=== PATIENT | female | born 1995 | race Caucasian/White ===

== ENCOUNTER 2018-04-01 05:45 | Emergency (ER) | payer BC ==
[2018-04-01] MEDS ORDERED: Lidocaine 2% Viscous Solution 15 ML Cup PO ONE (05:59)
[2018-04-01] MEDS ORDERED: Benzocaine 20% Topical Spray UD MUCMEM ONE (05:59)
--- NOTE | 2018-04-01 06:06 | EDM.PDOC ---
ED HPI GENERAL MEDICAL PROBLEM - General Chief Complaint: General Stated Complaint: TOOTH PAIN Time Seen by Provider: 04/01/18 05:57 - History of Present Illness INITIAL COMMENTS - FREE TEXT/NARRATIVE: HISTORY AND PHYSICAL: History of present illness: The patient is a 22-year-old female who is here with complaints of dental pain and gum pain to her left upper premolar area where she has had some dental work in the past. She says she's been using [id number] Advil and it has not been working and she is concerned about getting an infection. She has no point with the dentist on Sunday of this week and she knows that they will not do any work or evaluation if there is any signs of infection so she is here for antibiotics and further pain management. She's been eating and drinking normally and says the pain is involving her entire left face but she is not having any fevers chills or other systemic complaints. Patient denies Review of systems: As per history of present illness and below otherwise all systems reviewed and negative. Past medical history: As per history of present illness and as reviewed below otherwise noncontributory. Surgical history: As per history of present illness and as reviewed below otherwise noncontributory. Social history: No reported history of drug or alcohol abuse. Family history: As per history of present illness and as reviewed below otherwise noncontributory. Physical exam: HEENT: Atraumatic, normocephalic, pupils reactive, negative for conjunctival pallor or scleral icterus, mucous membranes moist, throat clear, neck supple, nontender, trachea midline. There is no visible evidence of any facial swelling. There is no cervical adenopathy or nuchal rigidity. At the left upper premolar area there is a tooth with tenderness but no obvious fracture or cavity and there is only minimal gum swelling in this region without fluctuance. Lungs: Clear to auscultation, breath sounds equal bilaterally, chest nontender. Heart: S1S2, regular rate and rhythm no overt murmurs Abdomen: Soft, nondistended, nontender. NABS Pelvis: Deferred Genitourinary: Deferred. Rectal: Deferred. Extremities: Atraumatic, full range of motion without defects or deficits. Neurovascular unremarkable. Neuro: Awake, alert, oriented. Cranial nerves II through XII unremarkable. Cerebellum unremarkable. Motor and sensory unremarkable throughout. Exam nonfocal. Diagnostics: [] Therapeutics: Dental balls The patient has specifically asked for ibuprofen 800 mg as she says that works the best for her and I will also give her amoxicillin from [facility] Impression: Dental pain Definitive disposition and diagnosis as appropriate pending reevaluation and review of above. tooth Pain Score (Numeric/FACES): 9 - Related Data Allergies Allergy/AdvReac Type Severity Reaction Status Date / Time No Known Allergies Allergy Verified 04/01/18 05:59 Home Meds: Home Meds . [No Known Home Meds] 04/01/18 [History] ED ROS GENERAL - Review of Systems Review Of Systems: ROS reveals no pertinent complaints other than HPI. ED EXAM, GENERAL - Physical Exam Exam: See Below (See dictation) Course - Vital Signs Last Recorded V/S: Last Vital Signs Temp 35.5 C 04/01/18 05:59 Pulse 115 H 04/01/18 05:59 Resp 20 04/01/18 05:59 BP 155/102 H 04/01/18 05:59 Pulse Ox 97 04/01/18 05:59 - Orders/Labs/Meds Meds: Medications Discontinued Medications Generic Name Dose Route Start Last Admin Trade Name Freq PRN Reason Stop Dose Admin Benzocaine 2 each 04/01/18 05:59 Hurricaine One 20% MUCMEM 04/01/18 06:00 ONETIME ONE Lidocaine HCl 15 ml 04/01/18 05:59 Xylocaine 2% Viscous PO 04/01/18 06:00 ONETIME ONE Departure - Departure Time of Disposition: 06:05 Disposition: Home, Self-Care 01 Condition: Good Clinical Impression: Pain, dental - Discharge Information Referrals: PCP,None [Primary Care Provider] - Additional Instructions: The following information is given to patients seen in the emergency department who are being discharged to home. This information is to outline your options for follow-up care. We provide all patients seen in our emergency department with a follow-up referral. The need for follow-up, as well as the timing and circumstances, are variable depending upon the specifics of your emergency department visit. If you don't have a primary care physician on staff, we will provide you with a referral. We always advise you to contact your personal physician following an emergency department visit to inform them of the circumstance of the visit and for follow-up with them and/or the need for any referrals to a consulting specialist. The emergency department will also refer you to a specialist when appropriate. This referral assures that you have the opportunity for followup care with a specialist. All of these measure are taken in an effort to provide you with optimal care, which includes your followup. Under all circumstances we always encourage you to contact your private physician who remains a resource for coordinating your care. When calling for followup care, please make the office aware that this follow-up is from your recent emergency room visit. If for any reason you are refused follow-up, please contact the [facility] emergency department at and ask to speak to the emergency department charge nurse. [facility] Primary care- Internal Medicine and Family [address] [id number] Please keep your appointment with the dentist this week and apply ice to face for any swelling. Push hydration and take medications as prescribed. Use the dental balls you have been given in the ER as shown and as needed for pain management. UA also use [id number] Tylenol in addition to the ibuprofen you have been prescribed. Return to ER as needed and as discussed
== END 2018-04-01 06:17 | disposition home or self-care (01) ==
LOC: MW.ED 05:45
DX: K08.89 Other specified disorders of teeth and supporting structures (principal)
CPT/HCPCS: 99282; A9270; 99283